=== PATIENT | male | born 2000 | race African-American/Black ===

== ENCOUNTER 2023-06-07 07:39 | Outpatient (REF) | payer OTHER, SELFPAY ==
--- NOTE | ~2023-06-07 | CT_ITS ---
EXAMINATION: CT WRIST WITHOUT CONTRAST, RIGHT CLINICAL INFORMATION: Dorsal wrist pain COMPARISON: None available. TECHNIQUE: A noncontrast CT of the right wrist with sagittal and coronal reformats This CT examination was performed using dose optimization techniques as appropriate, variously including the following: *Automated exposure control *Adjustment of mA and/or kV according to patient size (this includes techniques or standardized protocols for targeted exams where dose is matched to indication/reason for exam; i.e. extremities or head) *Use of iterative reconstruction technique DLP: 117 mGy-cm FINDINGS: There is a 7 mm oval-shaped ossification with secondary degenerative change at the junction with the dorsal/distal lip of the lunate. This might represent an accessory ossicle or remote, ununited fracture fragment. No acute osseous abnormality. CT/CT wrist RT wo IV con IMPRESSION: There is a 7 mm oval-shaped ossification at the junction with the dorsal/distal lip of the lunate which might represent an accessory ossicle or remote, ununited fracture fragment, with degenerative change at the junction with the lunate proper. No acute osseous abnormality.
== END 2023-06-07 07:40 | disposition home or self-care (01) ==
LOC: HO.CT 07:39
PROVIDERS: Visit Provider Family Medicine
DX: M25.531 Pain in right wrist (principal)
CPT/HCPCS: 73200